=== PATIENT | male | born 1965 | race Caucasian/White ===

== ENCOUNTER 2018-08-21 22:10 | Emergency (ER) | payer MEDICARE, OTHER ==
[~2018-08-21] VITALS: Ht 167.6 cm; Wt 69.1 kg
[2018-08-21 22:12] VITALS: Ht 167.6 cm; Wt 69.1 kg
--- NOTE | 2018-08-22 00:44 | PSY ---
Date/Time of Note Date/Time of Note DATE: 08/22/18 TIME: 00:42 Psychiatric Subjective Eval Consent Pt consented to telemedicine: Yes Subjective Evaluation Patient location: emergency Chief Complaint: BIBA 81 for SI, off medications, plan to run into traffic, auditory halluci Allergies: Coded Allergies: Penicillins (Verified Allergy, Unknown, 08/21/18) Psychiatric Objective Eval Mental Status Examination: Laboratory Results Laboratory Tests Test 08/21/18 22:55 White Blood Count 12.4 10^3/ul Red Blood Count 5.61 10^6/ul Hemoglobin 16.4 g/dl Hematocrit 50.2 % Mean Corpuscular Volume 89.5 fl Mean Corpuscular Hemoglobin 29.2 pg Mean Corpuscular Hemoglobin Concent 32.7 g/dl Red Cell Distribution Width 13.8 % Platelet Count 357 10^3/UL Mean Platelet Volume 9.6 fl Immature Granulocytes % 0.500 % Neutrophils % 63.5 % Lymphocytes % 20.1 % Monocytes % 13.1 % Eosinophils % 2.1 % Basophils % 0.7 % Nucleated Red Blood Cells % 0.0 /100WBC Immature Granulocytes # 0.060 10^3/ul Neutrophils # 7.9 10^3/ul Lymphocytes # 2.5 10^3/ul Monocytes # 1.6 10^3/ul Eosinophils # 0.3 10^3/ul Basophils # 0.1 10^3/ul Nucleated Red Blood Cells # 0.0 10^3/ul Urine Color YELLOW Urine Clarity CLEAR Urine pH 6.0 Urine Specific [place] 1.019 Urine Ketones NEGATIVE mg/dL Urine Nitrite NEGATIVE mg/dL Urine Bilirubin NEGATIVE mg/dL Urine Urobilinogen NEGATIVE mg/dL Urine Leukocyte Esterase NEGATIVE Gissell/ul Urine Hemoglobin NEGATIVE mg/dL Urine Glucose NEGATIVE mg/dL Urine Total Protein NEGATIVE mg/dl Sodium Level 139 mmol/L Potassium Level 4.9 mmol/L Chloride Level 101 mmol/L Carbon Dioxide Level 30 mmol/L Anion Gap 8 Blood Urea Nitrogen 21 mg/dl Creatinine 1.11 mg/dl Est Glomerular Filtrat Rate mL/min > 60 mL/min Glucose Level 112 mg/dl Calcium Level 9.8 mg/dl Total Bilirubin 0.2 mg/dl Direct Bilirubin 0.00 mg/dl Indirect Bilirubin 0.2 mg/dl Aspartate Amino Transf (AST/SGOT) 24 IU/L Alanine Aminotransferase (ALT/SGPT) 25 IU/L Alkaline Phosphatase 93 IU/L Total Protein 7.6 g/dl Albumin 4.2 g/dl Globulin 3.40 g/dl Albumin/Globulin Ratio 1.23 Salicylates Level < 1.0 mg/dl Urine Opiates Screen Negative Acetaminophen Level < 10.0 ug/ml Urine Barbiturates Negative Urine Amphetamines Screen Negative Urine Benzodiazepines Screen Negative Urine Cocaine Screen Negative Urine Cannabinoids Negative Ethyl Alcohol Level < 10.0 mg/dl Assessment and Plan Recommendation/Plan Discharge Disposition: Psychiatric inpatient Legal Status: Voluntary Assessment Additional comments: IDENTIFYING INFORMATION: 53 year old AAM patient who is currently located at the hospital and for whom psychiatric consultation was requested. SOURCES OF INFORMATION: The patient who appears to be reliable and the medical r ecords; the nursing staff. CHIEF COMPLAINT: "suicidal thoughts". HISTORY OF PRESENT ILLNESS: The patient was interviewed via telemedicine in the presence of and under the supervision of nursing staff of the hospital. The consent to conducting this interview via telemedicine was obtained by the nursing staff at the hospital. BAILEE Lloyd reports that the patient presented with SI with plan to run into traffic. The patient reports having SI with plan to run into traffic, depressed mood, anhedonia, AH, delusions of being able to fly. The patient denies using alcohol heavily or regularly. The patient denies using any other substances lately. In terms of past psychiatric history, the patient reports having a history of past psychiatric hospitalizations. The patient reports having a history of past suicide attempts. Past medication trials: zoloft (good response). PAST MEDICAL HISTORY: HTN. CURRENT MEDICATIONS: none. ALLERGIES TO MEDICATIONS: PCN. LABORATORY TESTS: CBC with WBCs 12.4, , CMP with BUM 21, UDS -, alcohol level -. SOCIAL HISTORY: single, homeless, no kids, on SSI. REVIEW OF SYSTEMS: Constitutional (e.g., fever, weight loss): negative; Eyes, Ears, Nose, Mouth, Throat: negative; Cardiovascular: negative; Respiratory: negative; Gastrointestinal: negative; Genitourinary: negative; Musculoskeletal: negative; Integumentary (skin and/or breast): negative; Neurological: negative; Psychiatric: as per HPI; Endocrine: negative; Hematologic/Lymphatic: negative; Allergic/Immunologic: negative. MENTAL STATUS EXAMINATION: General Appearance and Behavior: Calm, cooperative with the interview, pleasant with the current interviewer, makes fair eye contact, fairly groomed, no abnormal movements noted, Speech: Regular rate, regular rhythm, normal latency, normal volume, somewhat decreased amount, Flow of thought: sequential, logical, goal-directed, Content of thought: positive for auditory hallucinations, no visual hallucinations, no delusions, positive for suicidal ideation; no homicidal ideation, Mood: "depressed", Affect: dysthymic, dysphoric, not reactive, Attention: normal based on the interview, Insight: fair, Judgment: poor, Memory: normal based on the interview, Sensorium: alert and oriented to person, place and date. ASSESSMENT: The patient's presentation and history are consistent with the diagnosis of unspecified mood disorder. The patient presents in a major depressive episode in the context of medication noncompliance, psychosocial stressors. No evidence of allyn, hypomania on exam. PLAN: - Medication management: Would start zoloft 50 mg po qday. Would start haloperidol 5 mg IM PRN severe agitation q4 hours. Would start diphenhydramine 50 mg IM PRN severe agitation q4 hours. Would start lorazepam 2 mg IM PRN severe agitation q4 hours Will defer to the inpatient psychiatry team for other medication changes. - Labs: No other laboratory tests are needed at this time. - Psychotherapy: Provided supportive psychotherapy and psychoeducation. - Disposition: Would recommend voluntary admission to the inpatient psychiatric unit as the patient would benefit from such an intervention so long as the patient has been cleared medically for admission to psychiatry. The patient is agreeable to being hospitalized in the inpatient psychiatric unit at this time. Would place on suicide precautions. I called the emergency room physician who is taking care of the patient to discuss about the above plan but the emergency room physician is not available at this time. I left my phone number with the hospital staff requesting a callback so that the emergency room physician can reach me when they become available. IAIN WESTFALL MD Aug 22, 2018 00:44
[2018-08-22] MEDS ORDERED: QUET25TA PO (03:02)
[2018-08-22] MEDS ORDERED: PARO10TA57 PO (03:02)
[2018-08-22 12:20] VITALS: BP 145/87; PULSE 78; RESP 20
--- NOTE | 2018-08-26 07:20 | ERD ---
ER Documentation Chief Complaint Chief Complaint BIBA 81 for SI, off medications, plan to run into traffic, auditory halluci HPI 53-year-old man with history of psychiatric illness presenting with suicidal ideation. He states he wants to run into traffic and states he has not been using his medications as prescribed. ROS All systems reviewed and are negative except as per history of present illness. Medications Home Meds Reported Medications Paroxetine Hcl* (Paxil*) 10 Mg Tablet, 10 MG PO DAILY, TAB 08/22/18 Quetiapine Fumarate* (Seroquel*) 25 Mg Tablet, 25 MG PO DAILY, #30 TAB 08/22/18 Allergies Allergies: Coded Allergies: Penicillins (Verified Allergy, Unknown, 08/21/18) PMhx/Soc Depression Medical and Surgical Hx: pt denies Surgical Hx Hx Cardiac Disorders: Yes (HTN) Hx Psychiatric Problems: No (PT STATES NO HX OF PSYCH) Hx Alcohol Use: No Hx Substance Use: Yes ("SPICE", METH) Hx Tobacco Use: No Smoking Status: Unknown if ever smoked FmHx Family History: No diabetes Physical Exam Vitals Vital Signs Date Temp Pulse Resp B/P (MAP) Pulse Ox O2 O2 Flow FiO2 Time Delivery Rate 08/22/18 98.3 78 20 145/87 100 Room Air 12:20 (106) 08/22/18 98.9 76 20 138/78 97 Room Air 10:04 (98) Physical Exam Const: Depressed affect, afebrile Resp: Clear to auscultation bilaterally Cardio: Regular rate and rhythm, no murmurs Abd: Soft, non tender, non distended. Normal bowel sounds Skin: No petechiae or rashes Back: No midline or flank tenderness Ext: No cyanosis, or edema Neur: Awake and alert x3, no focal deficits or facial asymmetry Psych: Depressed affect Results 24 hrs Laboratory Tests Test 08/21/18 22:55 White Blood Count 12.4 10^3/ul Red Blood Count 5.61 10^6/ul Hemoglobin 16.4 g/dl Hematocrit 50.2 % Mean Corpuscular Volume 89.5 fl Mean Corpuscular Hemoglobin 29.2 pg Mean Corpuscular Hemoglobin Concent 32.7 g/dl Red Cell Distribution Width 13.8 % Platelet Count 357 10^3/UL Mean Platelet Volume 9.6 fl Immature Granulocytes % 0.500 % Neutrophils % 63.5 % Lymphocytes % 20.1 % Monocytes % 13.1 % Eosinophils % 2.1 % Basophils % 0.7 % Nucleated Red Blood Cells % 0.0 /100WBC Immature Granulocytes # 0.060 10^3/ul Neutrophils # 7.9 10^3/ul Lymphocytes # 2.5 10^3/ul Monocytes # 1.6 10^3/ul Eosinophils # 0.3 10^3/ul Basophils # 0.1 10^3/ul Nucleated Red Blood Cells # 0.0 10^3/ul Urine Color YELLOW Urine Clarity CLEAR Urine pH 6.0 Urine Specific [place] 1.019 Urine Ketones NEGATIVE mg/dL Urine Nitrite NEGATIVE mg/dL Urine Bilirubin NEGATIVE mg/dL Urine Urobilinogen NEGATIVE mg/dL Urine Leukocyte Esterase NEGATIVE [place]issell/ul Urine Hemoglobin NEGATIVE mg/dL Urine Glucose NEGATIVE mg/dL Urine Total Protein NEGATIVE mg/dl Sodium Level 139 mmol/L Potassium Level 4.9 mmol/L Chloride Level 101 mmol/L Carbon Dioxide Level 30 mmol/L Anion Gap 8 Blood Urea Nitrogen 21 mg/dl Creatinine 1.11 mg/dl Est Glomerular Filtrat Rate mL/min > 60 mL/min Glucose Level 112 mg/dl Calcium Level 9.8 mg/dl Total Bilirubin 0.2 mg/dl Direct Bilirubin 0.00 mg/dl Indirect Bilirubin 0.2 mg/dl Aspartate Amino Transf (AST/SGOT) 24 IU/L Alanine Aminotransferase (ALT/SGPT) 25 IU/L Alkaline Phosphatase 93 IU/L Total Protein 7.6 g/dl Albumin 4.2 g/dl Globulin 3.40 g/dl Albumin/Globulin Ratio 1.23 Salicylates Level < 1.0 mg/dl Urine Opiates Screen Negative Acetaminophen Level < 10.0 ug/ml Urine Barbiturates Negative Urine Amphetamines Screen Negative Urine Benzodiazepines Screen Negative Urine Cocaine Screen Negative Urine Cannabinoids Negative Ethyl Alcohol Level < 10.0 mg/dl Procedures/MDM Security one-to-one watch was established and tele-psychiatry was contacted. CBC and electrolytes are normal, liver function tests are normal, ethanol level was negative, urine drug screen negative, urine analysis negative for infection. Tele-psychiatry evaluated the patient and recommended 5150 psychiatric hold Patient's behavioral symptoms have stabilized while in the department. Patient is medically cleared and appropriate for psychiatric evaluation and work up. No e/o neurologic, toxic, infectious, or metabolic cause. Patient transferred to the accepting [facility] facility Departure Diagnosis: Primary Impression: Suicidal ideation Condition: ELIZABETH Bowman MD Aug 26, 2018 07:20
== END 2018-08-22 13:07 ==
LOC: E/R 22:10
DX: R45.851 Suicidal ideations (principal); I10 Essential (primary) hypertension
CPT/HCPCS: 80053; 80307; 81003; 85025